=== PATIENT | male | born 1995 | race Caucasian/White ===

== ENCOUNTER 2020-09-14 06:53 | Observation (INO) | payer OTHER, SELFPAY ==
[2020-09-14] VITALS (7 sets, daily range): BP systolic 102–114; BP diastolic 56–82; PULSE 50–71; RESP 14–18; TEMP 36.5–37.2; O2SAT 98–100; BMI 17.6
--- NOTE | ~2020-09-14 | CT_ITS ---
EXAMINATION: CT abdomen pelvis wo con DATE: 09/14/2020 08:12 INDICATION: Left flank pain for one day TECHNIQUE: Computed tomography (CT) of the abdomen and pelvis was performed without intravenous contr ast. Automated exposure control and iterative reconstruction technique were employed. Exam dose: 155 .90 mGy-cm total exam DLP. COMPARISON: None. FINDINGS: The included lung bases are clear. Normal heart size. No pericardial or pleural effusion. Liver, gallbladder, bile ducts, spleen, pancreas, adrenal glands and kidneys are unremarkable. Urinar y bladder and prostate gland are unremarkable. Normal caliber of the abdominal aorta. No intraperitoneal or retroperitoneal or pelvic mass lesion or adenopathy or ascites is evident. No evidence of appendicitis is noted. There is distal jejunum is distended with fecal content and gas, measuring up to 2.5 cm diameter. The re is a prominent of fecal material in the right and transverse colon. Probable sclerotic bone island of the left sacral alar and right femoral intertrochanteric area. IMPRESSION: Distal jejunum is distended with fecal content and gas, measuring up to 2.5 cm diameter; consider small bowel series for further evaluation in order to exclude partial distal small bowel ob struction Reviewed, dictated and finalized at [facility] Reviewed, dictated and finalized at [facility]. IMPRESSION: Distal jejunum is distended with fecal content and gas, measuring up to 2.5 cm diameter; consider small bowel series for further evaluation in or deborah to exclude partial distal small bowel obstruction
--- NOTE | ~2020-09-14 | XR_ITS ---
XR abdomen obstructive series DATE: 09/14/2020 09:22 INDICATION: Abdominal pain TECHNIQUE: Supine and upright AP views COMPARISON: 09/14/2020 CT abdomen pelvis FINDINGS: Gas distended distal small bowel is noted overlying the lower mid pelvic area, which may be due to mild adynamic ileus, enteritis or mild partial distal small bowel obstruction. No intraperito abigail free air. No visceromegaly or significant abnormal calcification is evident. There are multiple bilateral calci fied pelvic phleboliths. The psoas shadows are intact. No visceromegaly. Normal heart size. The lung bases are clear. Probable bone island of the intertrochanteric area of the proximal right femur. Probable bone island of the left sacral alar. IMPRESSION: Gaseous distention of distal small bowel overlying the lower mid pelvis; differential nadine gnosis includes mild adynamic ileus, enteritis or mild partial distal small bowel obstruction Reviewed, dictated and finalized at [facility] Reviewed, dictated and finalized at [facility]. IMPRESSION: Gaseous distention of distal small bowel overlying the lower mid pe lvis; differential diagnosis includes mild adynamic ileus, enteritis or mild pa rtial distal small bowel obstruction
--- NOTE | ~2020-09-14 | XR_ITS ---
EXAMINATION: XR abdomen obstructive series DATE: 09/16/2020 10:30 INDICATION: Left flank and abdominal pain. TECHNIQUE: Upright and supine views of the abdomen were obtained. COMPARISON: CT abdomen and pelvis 09/14/2020 FINDINGS: There are no dilated loops of bowel. There is a paucity of stool in the colon. No free intr aperitoneal gas. There are phleboliths in the pelvis. IMPRESSION: 1. Normal bowel gas pattern. Reviewed, dictated and finalized at [facility].
--- NOTE | 2020-09-14 07:22 | ECG_ITS ---
Measurements Intervals [place] Rate: 50 P: -54 MI: 115 QRS: 73 QRSD: 97 T: 64 QT: 449 QTc: 410 Interpretive Statements ECTOPIC ATRIAL BRADYCARDIA WITH SHORT MI INTERVAL INCOMPLETE RIGHT BUNDLE BRANCH BLOCK BASELINE ARTIFACT- I, II, III, AVR, AVL, AVF, V4-V6 ABNORMAL ECG Electronically Signed On 09-14-2020 13:27:34 CDT by Wong Lamb D.O.
[2020-09-14] MEDS: KETOROLAC 30 MG/ML VIAL (*BKC) IV PUSH (07:31)
[2020-09-14] MEDS: SODIUM CHLORIDE 0.9% IV 1,000 ML 999 ML IV CONT (07:31)
[2020-09-14 07:33] LABS: Add Urine Microscopic? YES; Appearance Urine Clear (Clear); Bilirubin Urine Negative (Negative); Blood Urine 3+ (Negative); Color Urine Yellow (Yellow); Glucose Urine UA Negative (Negative); Ketones Urine 1+ (Negative); Leukocyte Esterase Ur Negative LEU/UL (Negative); Nitrate Urine Negative (Negative); Protein Urine Trace (Negative); Specific Grav Ur >= 1.030 (1.010-1.020); pH Urine 5.5 (5.0-8.0)
[2020-09-14 07:41] LABS: Bacteria Urine Trace /hpf; Mucus Urine Few /lpf; Squamous Epithelial Cell Urine Rare /hpf (Few); WBC Urine None seen /hpf (0-3)
[2020-09-14 07:43] LABS: Basophils Absolute Auto 0.03 K/mm3 (0.00-0.10); Basophils Percent Auto 0.3 % (0.0-1.0); Eosinophils Absolute Auto 0.03 K/mm3 (0.02-0.50); Eosinophils Percent Auto 0.3 % (1.0-6.0); Hematocrit 42.4 % (40.0-54.0); Hemoglobin 14.8 g/dL (14.0-18.0); Immature Granulocyte Absolute 0.06 K/mm3 (0.00-0.00); Immature Granulocyte Percent A 0.5 % (0.0-0.0); Mean Corpuscular HGB Conc 34.9 g/dL (32.0-36.0); Mean Corpuscular Hemoglobin 29.8 pg (27.0-31.0); Mean Corpuscular Volume 85.5 fL (78.0-102.0); Mean Platelet Volume 10.5 fl (8.7-11.0); Monocytes Absolute Auto 0.45 K/mm3 (0.10-0.90); Monocytes Percent Auto 3.8 % (2.0-11.0); Neutrophils Percent Auto 84.1 % (50.0-70.0); Platelet Count Result 183 K/mm3 (150-420); Red Blood Count 4.96 M/mm3 (4.70-6.10); Red Cell Distribution Width 12.6 % (11.6-14.4); White Blood Count 11.8 K/mm3 (4.8-10.8)
[2020-09-14 08:01] LABS: Alanine Aminotransferase 16 U/L (16-63); Albumin Level 4.3 g/dL (3.4-5.0); Alkaline Phosphatase 77 U/L (46-116); Anion Gap 11 mmol/L (8-16); Aspartate Amino Transferase 11 U/L (15-37); Bilirubin,Total 0.4 mg/dL (0.00-1.00); Blood Urea Nitrogen 12 mg/dL (7-18); Carbon Dioxide 28 mmol/L (21-32); Chloride 105 mmol/L (98-108); Estimated Glomerular Filt Rate > 60; Glucose 148 mg/dL (70-99); Lipase 120 U/L (73-393); Osmolality Calculated 300 mOsm/kg (285-295); Potassium 3.5 mmol/L (3.5-5.1); Sodium 144 mmol/L (136-145); Total Protein 6.6 g/dL (6.4-8.2); Troponin I < 4.0 ng/L (0.00-60.4)
[2020-09-14 08:04] LABS: Lactic Acid Reflex 1.4 mmol/L (0.4-2.0)
--- NOTE | 2020-09-14 09:45 | ED.ABDPAIN ---
HPI - Abdominal Pain General Chief Complaint: Abdominal Pain Stated Complaint: back and abd pain Source: patient and family Mode of arrival: ambulatory History of Present Illness HPI narrative: this is a 25-year-old male that presents with some abdominal pain localized to the left flank and left lower quadrant for the last couple of days has decreased appetite and has had constipation over the last couple of days with no fever chills no known history except for marijuana use. There is no chest pain no shortness of breath no history of kidney disease or renal stones. Currently there is no nausea or vomiting. MD elicited complaint: abdominal pain Pertinent past history: constipation Onset (ago): day(s) Pain Consistency: intermittent Location: LLQ and L flank Severity: moderate Pain scale (0-10): 8 Quality: cramping, aching and fullness Radiation: L flank Migration to: LLQ Exacerbating factors: nothing Relieving factors: nothing Associated symptoms: constipation Related Data Home Medications Medication Instructions Recorded Confirmed No Home Medications 09/14/20 09/14/20 Review of Systems Review of Systems: All systems reviewed & are unremarkable except as noted in HPI and below PMFSH Past Medical History Medical History Patient denies medical problems Exam Const: General: no acute distress Orientation/consciousness: patient oriented x3 HENMT: Head: normal to inspection Eyes: Conjunctivae: conjunctivae normal Pupils: Equal, round and reactive pupils present Neck: Neck: normal visual inspection, no lymphadenopathy and no meningeal signs Chest: Chest palpation & inspection: normal inspection of the chest Resp: Effort & Inspection: normal respiratory effort Cardio: Rate: regular rate Rhythm: regular rhythm GI: GI Palp: Yes Tenderness to palpation present (GI) ( left lower quadrant) Percussion: Yes normal to percussion : General: Yes CVA tenderness Back/Spine/Pelvis: Back: CVA tenderness Skin: General skin exam: normal color Rashes: no rashes Neuro: General: patient oriented x3 Extrem: General: normal to inspection and no pedal edema Psych: Appearance: grossly normal Mental Status: mental status grossly normal Course Course Emergency Course: patient received Toradol which his pain level has improved, reviewed the lab findings along with CT scan and small-bowel follow-through showing a mild distal partial small bowel obstruction with mild adynamic ileus, will keep the patient overnight for observation with fluid hydration pain control and keep the patient NPO overnight. Vital Signs Vital signs: Vital Signs Temperature 36.5 C 09/14/20 07:05 Pulse Rate 66 09/14/20 07:05 Respiratory Rate 16 09/14/20 07:05 Blood Pressure 114/82 09/14/20 07:05 Pulse Oximetry 100 09/14/20 07:05 Temperature 36.5 C 09/14/20 07:05 Pulse Rate 66 09/14/20 07:05 Respiratory Rate 16 09/14/20 07:05 Blood Pressure 114/82 09/14/20 07:05 Pulse Oximetry 100 09/14/20 07:05 MDM - Abdominal Pain Lab Data Result diagrams: 09/14/20 07:38 09/14/20 07:38 Labs: Lab Results 09/14/20 09/14/20 09/14/20 Range/Units 07:22 07:38 07:38 WBC 11.8 H (4.8-10.8) K/mm3 RBC 4.96 (4.70-6.10) M/mm3 Hgb 14.8 (14.0-18.0) g/dL Hct 42.4 (40.0-54.0) % MCV 85.5 (78.0-102.0) fL MCH 29.8 (27.0-31.0) pg MCHC 34.9 (32.0-36.0) g/dL RDW 12.6 (11.6-14.4) % Plt Count 183 (150-420) K/mm3 MPV 10.5 (8.7-11.0) fl Immature Gran % (Auto) 0.5 H (0.0-0.0) % Neut % (Auto) 84.1 H (50.0-70.0) % Lymph % (Auto) 11.0 L (18.0-42.0) % [place] % (Auto) 3.8 (2.0-11.0) % Eos % (Auto) 0.3 L (1.0-6.0) % Baso % (Auto) 0.3 (0.0-1.0) % Lymph # (Auto) 1.30 (1.10-4.50) K/mm3 [place] # (Auto) 0.45 (0.10-0.90) K/mm3 Eos # (Auto) 0.03 (0.02-0.50) K/mm3 Baso #
[2020-09-14] MEDS: LACTATED RINGERS 1,000 ML 100 ML IV CONT ×2 (10:51→20:43)
[2020-09-14 12:52] LABS: Amphetamine Screen Urine Negative (Negative); Barbiturate Screen Urine Negative (Negative); Benzodiazepines Screen Urine Negative (Negative); Cannabinoid Screen Urine Positive (Negative); Cocaine Screen Urine Negative (Negative); Methadone Screen Urine Negative (Negative); Opiate Screen Urine Negative (Negative); Phencyclidine Screen Urine Negative (Negative)
--- NOTE | 2020-09-14 14:25 | PM.IMHP ---
H&P: HPI History of Present Illness Date/Time: 09/14/20 14:25 Akira Dobson is a 25 year old male who come into the hospital after 3 days of the following symptoms. Three days ago Pt states he has left sided back pain followed the next day with LLQ pain and the day there after he did not have any pains at all. However, today when he got up this AM he felt like he needed to have a BM. At that time the Lt back pain and LLQ pain started again and Pt states that he really felt like he needed to push quite hard to have a BM. He states that he did have 1 BM each day the previous days but was having a real difficult time this AM with having a BM. Pt denies any PMHx but does admit to using Marijuana daily. Pt denies any other issues at this time. he does not have any medications that he takes regularly and he states his eating habits are mostly snacking. Last meal was [employer] yesterday evening. Chief Complaint: Abdominal Pain Review of Systems Review of Systems: All systems reviewed & are unremarkable except as noted in HPI and below PMFSH Past Medical History Medical History Marijuana use Patient denies medical problems Family History Family History Mother Kidney stones Social History Social History Smoking status: Current every day smoker Tobacco type: cigarettes Alcohol intake: current Drinks per week: 1 Substance use: current Substance use type: marijuana Last use: 09/13/20 Gender identity (if verbalized by the patient): Male Spiritual care concerns: No Meds Home Medications and Allergies Home Medications Medication Instructions Recorded Confirmed Type No Home Medications 09/14/20 09/14/20 History Allergies Allergy/AdvReac Type Severity Reaction Status Date / Time No Known Allergies Allergy Verified 09/14/20 10:22 Vital Signs Vital Signs - 24 hr 09/14/20 07:05 09/14/20 09:15 09/14/20 10:23 Temperature 97.7 F Pulse Rate 66 71 50 L Respiratory Rate 16 Blood Pressure 114/82 103/56 L Pulse Oximetry 100 100 99 09/14/20 10:46 Temperature 98.8 F Pulse Rate 54 L Respiratory Rate 18 Blood Pressure 112/74 Pulse Oximetry 99 Exam Const: General: cooperative, comfortable, no acute distress, alert and awake Nutritional Appearance: thin Orientation/consciousness: oriented to person, oriented to place and oriented to time HENMT: Head: normal to inspection, normocephalic and atraumatic Ears: hearing grossly normal bilaterally Eyes: General: appearance normal, both eyes and all related structures Alignment and Position: alignment normal and position normal Neck: Neck: normal visual inspection, no lymphadenopathy and no JVD Resp: Effort & Inspection: normal respiratory effort, able to speak in complete sentences and no cough Auscultation: clear to auscultation bilaterally Cardio: Rate: regular rate Heart sounds: S1 normal heart sound present, S2 normal heart sound present, no click, no gallops, no murmurs and no rubs GI: Inspection: normal to inspection and non-distended GI Palp: Yes Soft to palpation, No Tenderness to palpation present (GI), Yes No hepatosplenomegaly present, No Hernia present, No Palpable mass present, No Pulsatile mass present and No Rebound tenderness present Auscultation: Hypoactive bowel sounds present (with some tinkling sounds) : Other: Urine in Urinal is Lupe in color Skin: General skin exam: pallor Trauma: no lacerations or abrasions Neuro: General: oriented to person, oriented to place and oriented to time Cranial nerves: Yes CN's II-XII intact bilaterally (grossly intact) Cognition (Neuro): normal cognition Speech: normal speech Extrem: General: normal to inspection, full ROM and no pedal edema Psych: Appearance: grossly normal Mental Status: mental status grossly normal Speec
[2020-09-14] MEDS: MORPHINE SULFATE (*CRX) 2 MG/ML INJ IV PUSH (20:29)
--- NOTE | 2020-09-14 20:56 | PC.NURSE ---
Patient alert and oriented x4. Pain rated at 3-medication not available at lower pain level. Morphine rated for 7-10 pain level. Doctor contacted. told to continue current medication. Patient given morphine. Bowel sounds present x4. Voided 200 mls of dark yellow urine. Cooperative with care and NPO status.
--- NOTE | 2020-09-14 22:32 | PC.NURSE ---
Patient resting at this time. Pain at an acceptable level at this time. Did express desire to leave-said he felt silly to be here for constipation. Explained disease process and need to maintain fluids to help resolve issue.
--- NOTE | 2020-09-14 23:39 | PC.NURSE ---
Patient appears to be resting. fluids continue as ordered. Pain 0 on FLACC
[2020-09-15] VITALS: BP 106/75; PULSE 41; RESP 14; TEMP 37; O2SAT 97
--- NOTE | 2020-09-15 00:02 | PC.NURSE ---
patient alert and oriented. No c/o pain at this time
[2020-09-15 05:46] LABS: Basophils Absolute Auto 0.04 K/mm3 (0.00-0.10); Basophils Percent Auto 0.5 % (0.0-1.0); Eosinophils Absolute Auto 0.19 K/mm3 (0.02-0.50); Eosinophils Percent Auto 2.6 % (1.0-6.0); Hematocrit 39.8 % (40.0-54.0); Hemoglobin 13.4 g/dL (14.0-18.0); Immature Granulocyte Absolute 0.02 K/mm3 (0.00-0.00); Immature Granulocyte Percent A 0.3 % (0.0-0.0); Lymphocytes Percent Auto 40.9 % (18.0-42.0); Mean Corpuscular HGB Conc 33.7 g/dL (32.0-36.0); Mean Corpuscular Hemoglobin 29.5 pg (27.0-31.0); Mean Corpuscular Volume 87.5 fL (78.0-102.0); Mean Platelet Volume 10.8 fl (8.7-11.0); Monocytes Absolute Auto 0.65 K/mm3 (0.10-0.90); Monocytes Percent Auto 8.9 % (2.0-11.0); Neutrophils Absolute Auto 3.4 K/mm3 (1.7-7.2); Neutrophils Percent Auto 46.8 % (50.0-70.0); Platelet Count Result 186 K/mm3 (150-420); Red Blood Count 4.55 M/mm3 (4.70-6.10); Red Cell Distribution Width 12.7 % (11.6-14.4); White Blood Count 7.3 K/mm3 (4.8-10.8)
[2020-09-15 06:00] LABS: Lactic Acid Reflex 0.8 mmol/L (0.4-2.0)
[2020-09-15 06:01] LABS: Alanine Aminotransferase 13 U/L (16-63); Albumin Level 3.3 g/dL (3.4-5.0); Alkaline Phosphatase 60 U/L (46-116); Anion Gap 6 mmol/L (8-16); Aspartate Amino Transferase < 10 U/L (15-37); Bilirubin,Total 0.6 mg/dL (0.00-1.00); Blood Urea Nitrogen 12 mg/dL (7-18); Calcium 8.8 mg/dL (8.5-10.1); Carbon Dioxide 30 mmol/L (21-32); Chloride 109 mmol/L (98-108); Estimated CRCL calculation 69 ml/min; Estimated Glomerular Filt Rate > 60; Glucose 91 mg/dL (70-99); Osmolality Calculated 299 mOsm/kg (285-295); Potassium 4.2 mmol/L (3.5-5.1); Sodium 145 mmol/L (136-145); Total Protein 5.3 g/dL (6.4-8.2)
[2020-09-15] MEDS: LACTATED RINGERS 1,000 ML 100 ML IV CONT ×2 (06:01→16:31)
[2020-09-15] MEDS: KETOROLAC 30 MG/ML VIAL (*BKC) IV PUSH (07:48)
[2020-09-15] MEDS: BISACODYL 10 MG SUPPOSITORY RECTAL (07:48)
[2020-09-15 07:52] LABS: Creatine Kinase 79 U/L (39-308)
[2020-09-15 08:00] VITALS: BP 133/82; PULSE 55; RESP 20; TEMP 36.9; O2SAT 99
[2020-09-15] MEDS: polyethylene glycoL 3350 17 GM POWD.PACK PO (10:12)
--- NOTE | 2020-09-15 11:29 | PM.IMPN ---
Progress Note: A&P Assessment and Plan (1) Small bowel obstruction: Code(s): K56.609 - Unspecified intestinal obstruction, unspecified as to partial versus complete obstruction Status: Acute Assessment and Plan: IVF LR 100/h, Bowel Rest NPO, Morphine for pain (Pt has not required this at this time), had NS bolus in ER 1 L, Toradol seems to work well for this Pt, no pain at this time, Suppository will be given. 09/15/2020 Suppository given this AM with minimal results, giving Miralax now, Pt will consider an enema but if Miralax does not work I believe he would like to try a different oral medication. Toradol working well. Called Radiologist to discuss white patches in lower abdomen on CT to see if there may be a possibility of one or more stuck in the ureter, radiologist did not believe any of the several white objects in the lower pelvis were in the ureter. Will continue treating the SBObstruction. 1508 hours Pt has not had a BM as of yes but feels his tummy growling, I gave him the option of some Mag Citrate and will leave this as a PRN order is he does not have a BP in the next 3 hours or so. Pt states he understands. (2) Marijuana use: Code(s): F12.90 - Cannabis use, unspecified, uncomplicated Status: Acute Assessment and Plan: Pt states he currently uses daily, UDS indicates NO other drugs in his system at this time. 09/15/2020 No other drugs found in UDS Subjective Date/time seen: 09/15/20 11:29 Pt was having left side flank pain that changed in to lower abdominal pain and then gave the Pt the sensation he had to have a BM. Pt had no other concerns today. Pt given suppository which only produced a little stool. Pt then given Miralax with Prune juice which at this time has not done anything. Encouraged Pt to continue with PO water and/or prune juice. Review of Systems Constitutional: Constitutional: Reports no additional constitutional complaints, Denies chills and Denies fever(s) Eyes: Eyes: Reports no additional eye complaints ENT: Reports system reviewed and no additional complaints, except as documented Cardiovascular: Cardiovascular: Reports no additional cardiovascular complaints and Denies chest pain Respiratory: Respiratory: Reports no additional respiratory complaints, Denies cough and Denies dyspnea Gastrointestinal: Gastrointestinal: Reports constipation (was able to pass gas, had very small BM post suppository) and Reports GI cramping (lower abdomen, intermittent) Genitourinary: Genitourinary: Reports flank pain (Left side radiating to lower abdomen, intermittent) Musculoskeletal: Musculoskeletal: Reports no additional musculoskeletal complaints Neurologic: Reports system reviewed and no additional complaints, except as documented, Denies dizziness and Denies headache(s) Psychiatric: Psychiatric: Reports no additional psychiatric complaints Exam Const: General: cooperative, comfortable (depends on when the Flank and lower abdominal pain comes), alert, awake and Physically active Nutritional Appearance: thin Orientation/consciousness: oriented to person, oriented to place and oriented to time HENMT: Head: normal to inspection, normocephalic and atraumatic Ears: hearing grossly normal bilaterally Eyes: General: appearance normal, both eyes and all related structures Alignment and Position: alignment normal and position normal Neck: Neck: normal visual inspection, no lymphadenopathy and no JVD Resp: Effort & Inspection: normal respiratory effort Auscultation: clear to auscultation bilaterally Cardio: Rate: regular rate Heart sounds: S1 normal heart sound present and S2 normal heart sound present GI: Inspection: normal to inspection GI Palp: Yes Soft to palpation, No Tenderness to palpation present (GI), No Guarding due to palpation present (GI) and Yes Other GI palpation findings present (this changes depending on when pain comes) Auscultation: normal bowel sounds Neuro: Gen
[2020-09-15 16:00] VITALS: BP 121/75; PULSE 51; RESP 18; TEMP 37.1; O2SAT 100
[2020-09-15] MEDS: MAGNESIUM CITRATE 300 ML BTL 150 ML PO (16:51)
--- NOTE | 2020-09-15 17:55 | PC.NURSE ---
Patient drank 150ml of magnesium citrate
[2020-09-15 20:00] VITALS: BP 102/57; PULSE 60; RESP 18; TEMP 37.1; O2SAT 93
[2020-09-16] VITALS: BP 112/80; PULSE 46; RESP 18; TEMP 36.2; O2SAT 98
[2020-09-16 04:00] VITALS: BP 118/73; PULSE 48; RESP 18; TEMP 36.1; O2SAT 98
[2020-09-16] MEDS: LACTATED RINGERS 1,000 ML 100 ML IV CONT (04:16)
[2020-09-16 07:45] VITALS: BP 114/73; PULSE 60; RESP 18; TEMP 36.9; O2SAT 100
--- NOTE | 2020-09-16 09:20 | PC.NURSE ---
Patient refused miralax. States he doesn't want to sit in the hospital all day again and have diarrhea. States he is not having pain/symptoms anymore. States he is hungry and just wants to eat. Nurse spoke with patient about diagnosis. Patient states understand and states he would like to speak with CLINICAL OPERATIONS CONSULTANT mian Heredia notified.
--- NOTE | 2020-09-16 10:24 | PC.NURSE ---
To xray via wheel chair
--- NOTE | 2020-09-16 12:17 | PM.DS ---
DS: Admitting Diagnosis Admitting Diagnosis Admitting Diagnosis: Ileus vs SBO DS: Discharge Diagnosis Discharge Diagnosis (1) Small bowel obstruction: Code(s): K56.609 - Unspecified intestinal obstruction, unspecified as to partial versus complete obstruction Status: Acute Assessment and Plan: IVF LR 100/h, Bowel Rest NPO, Morphine for pain (Pt has not required this at this time), had NS bolus in ER 1 L, Toradol seems to work well for this Pt, no pain at this time, Suppository will be given. 09/15/2020 Suppository given this AM with minimal results, giving Miralax now, Pt will consider an enema but if Miralax does not work I believe he would like to try a different oral medication. Toradol working well. Called Radiologist to discuss white patches in lower abdomen on CT to see if there may be a possibility of one or more stuck in the ureter, radiologist did not believe any of the several white objects in the lower pelvis were in the ureter. Will continue treating the SBObstruction. 1508 hours Pt has not had a BM as of yes but feels his tummy growling, I gave him the option of some Mag Citrate and will leave this as a PRN order is he does not have a BP in the next 3 hours or so. Pt states he understands. 09/16/2020 Repeat of Obstruction Series reported to find normal bowel gas pattern. Pt is eating lunch at this time and tolerating this very well. He states he is passing gas. Denies any abdominal pain, nausea, no vomiting. Offered Zofran as a script but Pt states he does not think he will need this. (2) Marijuana use: Code(s): F12.90 - Cannabis use, unspecified, uncomplicated Status: Acute Assessment and Plan: Pt states he currently uses daily, UDS indicates NO other drugs in his system at this time. 09/15/2020 No other drugs found in UDS DS: Summary Hospital Course Hospital Course: Pt had suppository, PO Laxative and with f/u obstruction series Pt abdomen showed normal bowel gas pattern and is tolerating PO foods very well. Time Spent with Patient Time attestation: Total time spent providing and/or coordinating discharge services: < 30 minutes Exam Const: General: cooperative, comfortable, no acute distress, alert, awake and Physically active Nutritional Appearance: thin HENMT: Head: normal to inspection, normocephalic and atraumatic Ears: hearing grossly normal bilaterally Eyes: Alignment and Position: alignment normal and position normal Neck: Neck: normal visual inspection, no lymphadenopathy and no JVD Resp: Effort & Inspection: normal respiratory effort Auscultation: clear to auscultation bilaterally Cardio: Rate: regular rate Heart sounds: S1 normal heart sound present and S2 normal heart sound present GI: GI Palp: Yes Soft to palpation and No Tenderness to palpation present (GI) Auscultation: normal bowel sounds and no high pitched sounds Skin: Trauma: no lacerations or abrasions Neuro: General: oriented to person, oriented to place and oriented to time Cranial nerves: Yes CN's II-XII intact bilaterally (grossly intact) Cognition (Neuro): normal cognition Speech: normal speech Gait exam (Neuro): Normal gait present Motor exam (neuro): 5/5 motor strength present throughout Extrem: General: full ROM and no pedal edema Psych: Appearance: grossly normal Mental Status: mental status grossly normal Speech and movement: Normal speech and movement present Affect: normal affect Attitude: cooperative Thought process: Normal thought process present Thought content: Yes Normal thought content present Discharge Plan Discharge Attending physician on discharge: Krzysztof Laureano Discharging Clinician: Ervin Nath Anticipated Discharge Date/Time: 09/16/20 13:00 Patient Disposition: Home, Self-Care Activity: as tolerated Diet: regular Discharge Instructions: get established with a PCP Patient Instructions: Bowel Obstruction (GEN), Ileus (GEN) Stand Alone Forms: G
--- NOTE | 2020-09-16 13:30 | PC.NURSE ---
Patient discharged home. All discharge instructions and education reviewed with patient. Patient states understanding. All belongings gathered and sent home with patient. Patient left the floor ambulatory accompanied by nurse, left via private vehicle with family member.
--- NOTE | 2020-09-18 09:45 | PC.NURSE ---
Pt state he received and understood his discharge instructions. Pt has no other comments.
== END 2020-09-16 13:30 | disposition home or self-care (01) ==
LOC: CHSED 09:52 → CHS2ND 10:00
PROVIDERS: Nurse Practitioner Family; Admitting Provider Emergency Medicine; Emergency Provider Emergency Medicine; Visit Provider Emergency Medicine
DX: K56.609 Unspecified intestinal obstruction, unspecified as to partial versus complete obstruction (principal); F12.90 Cannabis use, unspecified, uncomplicated
CPT/HCPCS: 36415; 74019; 74176; 80053; 80307; 81001; 82550; 83605; 83690; 84484; 85025; 93005; 96360; 96361; 96374; 96375; 99285; A9270; G0378; G0379; J1885; J2270; J7030; J7120